=== PATIENT | male | born 1955 | race Caucasian/White ===

== ENCOUNTER 2020-08-16 19:30 | Emergency (ER) | payer MEDICARE ==
[~2020-08-16] VITALS: Ht 180.3 cm; Wt 91.7 kg
[2020-08-16] MEDS ORDERED: LIDOCAINE W/EPINEPHRINE 1% 20ML VIAL SC ONE (22:30)
[2020-08-16] MEDS ORDERED: CEPH500C PO (23:13)
[2020-08-16 23:15] VITALS: BP 134/74
== END 2020-08-16 23:47 | disposition home or self-care (01) ==
LOC: M ED 19:30
DX: S80.852A Superficial foreign body, left lower leg, initial encounter (principal); W45.8XXA Other foreign body or object entering through skin, initial encounter; Y92.9 Unspecified place or not applicable; Y93.9 Activity, unspecified; Y99.9 Unspecified external cause status; F17.200 Nicotine dependence, unspecified, uncomplicated

== ENCOUNTER → 2021-08-22 | Outpatient (CLI) | payer MEDICARE ==
[~2021-08-22] MED LIST: CEPH500C PO
== END ==
LOC: M RAD 15:23
PROVIDERS: ATTEND Urology Pediatric Urology
DX: N50.811 Right testicular pain (principal)

== ENCOUNTER 2021-12-15 08:51 | Emergency (ER) | payer MEDICARE ==
[~2021-12-15] VITALS: Ht 180.3 cm; Wt 95.6 kg
[2021-12-15] MEDS ORDERED: ATOR1TAB21 (09:05)
[2021-12-15] MEDS ORDERED: LISI10TA22 (09:05)
[2021-12-15] MEDS ORDERED: SILD100T (09:05)
[2021-12-15] MEDS ORDERED: TRAZ1TAB14 (09:05)
[2021-12-15] MEDS ORDERED: PANT40TA29 (09:05)
[2021-12-15] MEDS ORDERED: TAMS1CAP17 (09:05)
[2021-12-15 09:28] LABS: BASO # 0.1 10^3/uL (0.0-0.2); EOS # 1.1 10^3/uL (0.0-0.5); HEMATOCRIT 48.1 % (42.0-52.0); LYMPH # 1.9 10^3/uL (1.5-5.0); LYMPH % 26.8 % (24.0-44.0); MEAN CORPUSCULAR HEMOGLOBIN 29.6 pg (27.0-33.0); MEAN CORPUSCULAR HGB CONC 33.3 g/dl (32.0-36.5); MEAN CORPUSCULAR VOLUME 88.9 fl (80.0-96.0); MONO # 0.5 10^3/uL (0.0-0.8); MONO % 6.7 % (2.0-8.0); NEUTROPHILS # 3.5 10^3/uL (1.5-8.5); NEUTROPHILS % 50.1 % (36.0-66.0); PLATELET COUNT, AUTOMATED 234 10^3/uL (150-450); RED BLOOD COUNT 5.41 10^6/uL (4.30-6.10)
[2021-12-15 10:05] LABS: BLOOD UREA NITROGEN 15 MG/DL (7-18); CALCIUM LEVEL 8.9 MG/DL (8.8-10.2); CARBON DIOXIDE LEVEL 25 MEQ/L (21-32); CHLORIDE LEVEL 107 MEQ/L (98-107); CREATININE FOR GFR 0.89 MG/DL (0.70-1.30); GLOMERULAR FILTRATION RATE > 60.0 (>49); GLUCOSE, FASTING 109 MG/DL (70-100); POTASSIUM SERUM 4.6 MEQ/L (3.5-5.1); SODIUM LEVEL 136 MEQ/L (136-145)
[2021-12-15] MEDS ORDERED: ACETAMINOPHEN 500 MG TAB PO ONE (10:05)
[2021-12-15] MEDS ORDERED: LIDOCAINE 5% (LIDODERM) PATCH TD ONE (11:45)
[2021-12-15] MEDS ORDERED: CYCL5TAB PO (13:04)
[2021-12-15] MEDS ORDERED: LIDO5DIS41 TOP (13:04)
[2021-12-15 13:12] VITALS: BP 125/92
== END 2021-12-15 13:21 | disposition home or self-care (01) ==
LOC: M ED 08:51
DX: S39.012A Strain of muscle, fascia and tendon of lower back, initial encounter (principal); R31.9 Hematuria, unspecified; M76.12 Psoas tendinitis, left hip; I25.84 Coronary atherosclerosis due to calcified coronary lesion; I10 Essential (primary) hypertension; E78.5 Hyperlipidemia, unspecified; K21.9 Gastro-esophageal reflux disease without esophagitis; F17.200 Nicotine dependence, unspecified, uncomplicated; F12.10 Cannabis abuse, uncomplicated; F10.10 Alcohol abuse, uncomplicated

== ENCOUNTER → 2021-12-18 | Outpatient (REF) | payer MEDICARE ==
[~2021-12-18] MED LIST changes: +ATOR1TAB21; +CYCL5TAB PO; +LIDO5DIS41 TOP; +LISI10TA22; +PANT40TA29; +SILD100T; +TAMS1CAP17; +TRAZ1TAB14
[2021-12-18 18:07] LABS: APPEARANCE, URINE MANUAL CLEAR (CLEAR); COLOR, URINE MANUAL YELLOW (YELLOW)
[2021-12-18 18:08] LABS: SPECIFIC GRAVITY,URINE MANUAL 1.015 (1.002-1.035)
[2021-12-18 18:09] LABS: BILIRUBIN, URINE MANUAL NEGATIVE (NEGATIVE); BLOOD URINE MANUAL POSITIVE (NEGATIVE); GLUCOSE, URINE (UA) MANUAL NEGATIVE (NEGATIVE); KETONE, URINE MANUAL NEGATIVE (NEGATIVE); LEUKOCYTE ESTERASE, URINE MAN NEGATIVE (NEGATIVE); NITRITE, URINE MANUAL NEGATIVE (NEGATIVE); PROTEIN, URINE MANUAL NEGATIVE (NEGATIVE); UROBILINOGEN, URINE MANUAL NORMAL (NORMAL)
[2021-12-18 18:37] LABS: BACTERIA, URINE NONE SEEN; HYALINE CAST, URINE NONE SEEN /lpf (0-1); SQUAMOUS EPITHELIAL CELL URINE SMALL AMOUNT /hpf (SMALL AMT); WBC, URINE 0-1 /hpf (0-3)
[2021-12-18 18:38] LABS: MUCUS, URINE SMALL AMOUNT (NEGATIVE)
== END ==
LOC: M SMT 16:54
PROVIDERS: ATTEND Nurse Practitioner Women's Health
DX: R31.29 Other microscopic hematuria (principal); Z12.5 Encounter for screening for malignant neoplasm of prostate

== ENCOUNTER → 2021-12-30 | Outpatient (REF) | payer MEDICARE ==
[2021-12-30 15:17] LABS: APPEARANCE, URINE MANUAL CLEAR (CLEAR); COLOR, URINE MANUAL LT YELLOW (YELLOW)
[2021-12-30 15:18] LABS: BILIRUBIN, URINE MANUAL NEGATIVE (NEGATIVE); BLOOD URINE MANUAL TRACE (NEGATIVE); GLUCOSE, URINE (UA) MANUAL NEGATIVE (NEGATIVE); KETONE, URINE MANUAL NEGATIVE (NEGATIVE); LEUKOCYTE ESTERASE, URINE MAN NEGATIVE (NEGATIVE); NITRITE, URINE MANUAL NEGATIVE (NEGATIVE); SPECIFIC GRAVITY,URINE MANUAL 1.005 (1.002-1.035); UROBILINOGEN, URINE MANUAL NORMAL (NORMAL)
[2021-12-30 15:41] LABS: PROTEIN, URINE MANUAL NEGATIVE (NEGATIVE); RBC, URINE 0-1 /hpf (0-3); WBC, URINE 0-1 /hpf (0-3)
[2021-12-30 15:42] LABS: BACTERIA, URINE SMALL AMOUNT; HYALINE CAST, URINE NONE SEEN /lpf (0-1); SQUAMOUS EPITHELIAL CELL URINE SMALL AMOUNT /hpf (SMALL AMT)
== END ==
LOC: M SMT 13:01
PROVIDERS: ATTEND Urology
DX: R31.29 Other microscopic hematuria (principal)

== ENCOUNTER → 2023-03-26 | Outpatient (REF) | payer MEDICARE, BC ==
[2023-03-26 17:49] LABS: ALBUMIN 3.7 G/DL (3.2-5.2); ALKALINE PHOSPHATASE 79 U/L (46-116); ALT/SGPT 20 U/L (7.0-40); AST/SGOT 12 U/L (<34); BILIRUBIN,TOTAL 0.6 MG/DL (0.3-1.2); BLOOD UREA NITROGEN 18 MG/DL (9-23); CALCIUM LEVEL 9.3 MG/DL (8.3-10.6); CARBON DIOXIDE LEVEL 29 MMOL/L (20-31); CHLORIDE LEVEL 105 MMOL/L (98-107); CHOLESTEROL LEVEL 109 MG/DL (<200); CHOLESTEROL RISK RATIO 2.58 (<5); CREATININE FOR GFR 0.93 MG/DL (0.70-1.30); GLOMERULAR FILTRATION RATE > 60.0 (>49); GLUCOSE, FASTING 89 MG/DL (74-106); HDL CHOLESTEROL 42.1 MG/DL (>40); LDL CHOLESTEROL 56.7 MG/DL (<100); NON-HDL-C 66.9 MG/DL; POTASSIUM SERUM 4.8 MMOL/L (3.5-5.1); SODIUM LEVEL 138 MMOL/L (136-145); TOTAL PROTEIN 7.5 G/DL (5.7-8.2); TRIGLYCERIDES LEVEL 51 MG/DL (<150)
[2023-03-26 17:52] LABS: THYROID STIMULATING HORMONE 2.042 uIU/ML (0.55-4.78)
== END ==
LOC: M LAB REF 16:32
PROVIDERS: ATTEND Family Medicine Addiction Medicine
DX: N40.1 Benign prostatic hyperplasia with lower urinary tract symptoms (principal); E78.5 Hyperlipidemia, unspecified

== ENCOUNTER → 2023-03-31 | Outpatient (CLI) | payer MEDICARE | LOC: M PLAIMG 08:25 | PROVIDERS: ATTEND Family Medicine Addiction Medicine | DX: I10 Essential (primary) hypertension (principal) ==

== ENCOUNTER → 2023-04-14 | Outpatient (CLI) | payer MEDICARE | LOC: M RAD 15:00 | PROVIDERS: ATTEND Family Medicine Addiction Medicine | DX: Z12.2 Encounter for screening for malignant neoplasm of respiratory organs (principal); F17.210 Nicotine dependence, cigarettes, uncomplicated ==

== ENCOUNTER 2023-05-29 07:09 | Day surgery (SDC) | payer MEDICARE ==
[~2023-05-29] VITALS: Ht 180.3 cm; Wt 94.5 kg
[~2023-05-29 07:09] MED LIST changes: +ALBU8.5H; +ATOR80TA59 PO; -LISI10TA22; +LISI10TA22 PO; -PANT40TA29; +PANT40TA29 PO; -TAMS1CAP17; +TAMS1CAP17 PO; -TRAZ1TAB14; +TRAZ1TAB14 PO
[2023-05-29] MEDS ORDERED: LR 1,000 ML IV SCH (07:40)
[2023-05-29] MEDS ORDERED: ONDANSETRON 4MG 2ML VIAL As Ordered ONE (08:48)
[2023-05-29] MEDS ORDERED: propofoL 200 MG/20 ML VIAL As Ordered ONE (08:48)
[2023-05-29] MEDS ORDERED: LIDOCAINE 2% 100MG/5ML SDV (FOR ANES.) As Ordered ONE (08:48)
[2023-05-29] MEDS ORDERED: ePHEDrine SULFATE 25 MG/5 ML(5MG/ML) SYRINGE As Ordered ONE (08:49)
[2023-05-29] MEDS ORDERED: fentaNYL 100 MCG/2 ML INJECTION As Ordered ONE (08:49)
[2023-05-29] MEDS ORDERED: MIDAZOLAM INJ 2MG/2ML VIAL As Ordered ONE (08:49)
[2023-05-29] MEDS ORDERED: PHENYLephrine 500MCG 5ML (100MCG/ML) SYRINGE As Ordered ONE (08:49)
[2023-05-29] MEDS ORDERED: BACITRACIN OINTMENT 30GM TUBE As Ordered ONE (08:53)
[2023-05-29] MEDS ORDERED: ACETAMINOPHEN 1000MG 100ML IV BAG As Ordered ONE (09:37)
[2023-05-29] MEDS ORDERED: fentaNYL 100 MCG/2 ML INJECTION IV PRN (09:45)
[2023-05-29] MEDS ORDERED: MORPHINE 2 MG/ML 1ML VIAL IV PRN (09:45)
[2023-05-29] MEDS ORDERED: oxyCODONE 5MG TAB PO PRN (09:45)
[2023-05-29] MEDS ORDERED: ONDANSETRON 4MG 2ML VIAL IV PRN (09:45)
[2023-05-29 10:33] VITALS: BP 132/80; TEMP 96.9; O2SAT 98
== END 2023-05-29 11:00 | disposition home or self-care (01) ==
LOC: M SDC 07:09
PROVIDERS: ATTEND Orthopaedic Surgery Hand Surgery
DX: G56.02 Carpal tunnel syndrome, left upper limb (principal); I10 Essential (primary) hypertension; E78.00 Pure hypercholesterolemia, unspecified; N40.0 Benign prostatic hyperplasia without lower urinary tract symptoms; Z79.899 Other long term (current) drug therapy; F17.210 Nicotine dependence, cigarettes, uncomplicated; R05.3 Chronic cough; K21.9 Gastro-esophageal reflux disease without esophagitis
CPT/HCPCS: 29848; J0131; J0665; J1100; J2250; J2371; J2405; J3010

== ENCOUNTER → 2023-06-18 | Outpatient (CLI) | payer MEDICARE | LOC: M SOG 08:07 | PROVIDERS: ATTEND Orthopaedic Surgery | DX: M25.562 Pain in left knee (principal) ==

== ENCOUNTER 2023-07-04 12:11 | Emergency (ER) | payer MEDICARE ==
[~2023-07-04] VITALS: Ht 180.3 cm; Wt 98.6 kg
[2023-07-04 12:11] VITALS: BP 139/85; TEMP 98.4; O2SAT 97
[2023-07-04 13:14] LABS: BASO # 0.1 10^3/uL (0.0-0.2); BASO % 0.7 % (0.0-1.0); EOS # 0.5 10^3/uL (0.0-0.5); EOS % 7.3 % (0.0-3.0); HEMATOCRIT 43.8 % (42.0-52.0); HEMOGLOBIN 14.9 g/dl (13.5-17.5); LYMPH # 1.7 10^3/uL (1.5-5.0); LYMPH % 23.2 % (24.0-44.0); MEAN CORPUSCULAR VOLUME 88.1 fl (80.0-96.0); MONO # 0.5 10^3/uL (0.0-0.8); MONO % 6.4 % (2.0-8.0); NEUTROPHILS # 4.5 10^3/uL (1.5-8.5); PLATELET COUNT, AUTOMATED 234 10^3/uL (150-450); RED BLOOD COUNT 4.97 10^6/uL (4.30-6.10); WHITE BLOOD COUNT 7.2 10^3/uL (4.0-10.0)
[2023-07-04 13:19] LABS: ERYTHROCYTE SEDIMENTATION RATE 15 mm/hr (0-20)
[2023-07-04 13:46] LABS: BLOOD UREA NITROGEN 17 MG/DL (9-23); CARBON DIOXIDE LEVEL 27 MMOL/L (20-31); CHLORIDE LEVEL 105 MMOL/L (98-107); CREATININE FOR GFR 0.93 MG/DL (0.70-1.30); GLOMERULAR FILTRATION RATE > 60.0 (>49); GLUCOSE, FASTING 82 MG/DL (74-106); POTASSIUM SERUM 4.4 MMOL/L (3.5-5.1); SODIUM LEVEL 137 MMOL/L (136-145)
[2023-07-04] MEDS ORDERED: AMOX875T2 PO (14:20)
[2023-07-04] MEDS: AUGMENTIN 875 MG TAB PO ONE (14:23)
[2023-07-04] MEDS: CETIRIZINE (ZyrTEC) 10 MG TAB PO ONE (14:23)
== END 2023-07-04 14:35 | disposition home or self-care (01) ==
LOC: M ED 12:11
DX: S60.562A Insect bite (nonvenomous) of left hand, initial encounter (principal); L03.114 Cellulitis of left upper limb; K21.9 Gastro-esophageal reflux disease without esophagitis; E78.5 Hyperlipidemia, unspecified; F51.01 Primary insomnia; F12.10 Cannabis abuse, uncomplicated; F10.10 Alcohol abuse, uncomplicated; Z87.891 Personal history of nicotine dependence; Z79.52 Long term (current) use of systemic steroids; Z79.2 Long term (current) use of antibiotics; Z79.02 Long term (current) use of antithrombotics/antiplatelets; Z79.811 Long term (current) use of aromatase inhibitors; Z79.899 Other long term (current) drug therapy

== ENCOUNTER → 2023-07-23 | Outpatient (CLI) | payer MEDICARE ==
[~2023-07-23] MED LIST changes: +AMOX875T2 PO
== END ==
LOC: M SLEEP 20:00
PROVIDERS: ATTEND Internal Medicine Critical Care Medicine
DX: G47.33 Obstructive sleep apnea (adult) (pediatric) (principal)

== ENCOUNTER 2023-08-27 19:55 | Emergency (ER) | payer MEDICARE ==
[~2023-08-27] VITALS: Ht 180.3 cm; Wt 94.3 kg
[2023-08-27 19:56] VITALS: BP 135/90; TEMP 98.4; O2SAT 96
[2023-08-27] MEDS: LIDOCAINE 2% MDV 20ML VIAL SC ONE (20:40)
[2023-08-27] MEDS ORDERED: CEFD300CAP PO (21:13)
[2023-08-27] MEDS: CEFDINIR 300 MG CAP (OMNICEF) PO ONE (21:17)
== END 2023-08-27 21:24 | disposition home or self-care (01) ==
LOC: M ED 19:55
DX: S60.450A Superficial foreign body of right index finger, initial encounter (principal); K21.9 Gastro-esophageal reflux disease without esophagitis; I10 Essential (primary) hypertension; N40.0 Benign prostatic hyperplasia without lower urinary tract symptoms; E78.5 Hyperlipidemia, unspecified; Z79.52 Long term (current) use of systemic steroids; Z79.02 Long term (current) use of antithrombotics/antiplatelets; Z79.811 Long term (current) use of aromatase inhibitors; Z79.2 Long term (current) use of antibiotics; Y92.9 Unspecified place or not applicable; Y93.89 Activity, other specified; Y99.9 Unspecified external cause status

== ENCOUNTER → 2023-09-07 | Outpatient (CLI) | payer MEDICARE ==
[~2023-09-07] MED LIST changes: +CEFD300CAP PO
== END ==
LOC: M RAD 07:27
PROVIDERS: ATTEND Orthopaedic Surgery Hand Surgery
DX: M19.032 Primary osteoarthritis, left wrist (principal); M25.532 Pain in left wrist

== ENCOUNTER → 2023-11-15 | Outpatient (CLI) | payer MEDICARE | LOC: M SLEEP 20:00 | PROVIDERS: ATTEND Internal Medicine Critical Care Medicine | DX: G47.30 Sleep apnea, unspecified (principal) ==

== ENCOUNTER → 2023-11-16 | Outpatient (CLI) | payer MEDICARE | LOC: M RAD 12:52 | PROVIDERS: ATTEND Family Medicine Addiction Medicine | DX: L98.9 Disorder of the skin and subcutaneous tissue, unspecified (principal) ==

== ENCOUNTER → 2024-01-06 | Outpatient (REF) | payer MEDICARE ==
[~2024-01-06] MED LIST changes: -CYCL5TAB PO; +CYCL5TAB4 PO
[2024-01-06 14:05] LABS: ALBUMIN 3.7 G/DL (3.2-5.2); ALKALINE PHOSPHATASE 90 U/L (40-129); ALT/SGPT 22 U/L (7.0-40); AST/SGOT 12 U/L (<34); BILIRUBIN,TOTAL 0.6 MG/DL (0.3-1.2); BLOOD UREA NITROGEN 17 MG/DL (9-23); CALCIUM LEVEL 9.4 MG/DL (8.3-10.6); CARBON DIOXIDE LEVEL 26 MMOL/L (20-31); CHLORIDE LEVEL 108 MMOL/L (98-107); CHOLESTEROL LEVEL 122 MG/DL (<200); CHOLESTEROL RISK RATIO 2.99 (<5); CREATININE FOR GFR 0.86 MG/DL (0.70-1.30); GLOMERULAR FILTRATION RATE > 60.0 (>49); GLUCOSE, FASTING 97 MG/DL (74-106); HDL CHOLESTEROL 40.7 MG/DL (>40); LDL CHOLESTEROL 66.9 MG/DL (<100); NON-HDL-C 81.3 MG/DL; POTASSIUM SERUM 4.4 MMOL/L (3.5-5.1); SODIUM LEVEL 139 MMOL/L (136-145); THYROID STIMULATING HORMONE 2.082 uIU/ML (0.55-4.78); TOTAL PROTEIN 7.5 G/DL (5.7-8.2); TRIGLYCERIDES LEVEL 72 MG/DL (<150)
== END ==
LOC: M LAB REF 12:53
PROVIDERS: ATTEND Family Medicine Addiction Medicine
DX: E78.5 Hyperlipidemia, unspecified (principal)

== ENCOUNTER 2024-02-10 10:02 | Day surgery (SDC) | payer MEDICARE ==
[~2024-02-10] VITALS: Ht 180.3 cm; Wt 97.1 kg
[~2024-02-10 10:02] MED LIST changes: +ASPI81TA26 PO; +LORA-1041 PO; +PHENYLEPHRINE 10% OPHTH SOL 5ML OD PRN; +SILD100T PO
[2024-02-10] MEDS ORDERED: MIDAZOLAM INJ 2MG/2ML VIAL As Ordered ONE (11:06)
[2024-02-10] MEDS ORDERED: fentaNYL 100 MCG/2 ML INJECTION As Ordered ONE (11:07)
[2024-02-10] MEDS: LIDOCAINE 3.5 % 1ML OPHTH TOPICAL GEL OU ONE (11:23)
[2024-02-10] MEDS: TROPICAMIDE 1% OPHTH SOLN 15ML OD SCH (11:23)
[2024-02-10] MEDS: PHENYLEPHRINE 2.5% OPHTH SOL 2ML OD SCH (11:23)
[2024-02-10] MEDS: OFLOXACIN 0.3 % (OCUFLOX) OPTH SOL 5ML OD ONE (11:23)
[2024-02-10] MEDS: CYCLOPENTOLATE 1% OPHTH SOLN 2ML BTL OD SCH (11:23)
[2024-02-10] MEDS: BSS IRRIG/VANCO(10MG)/TOBRA(5MG)/EPINEPH(1:1000-0.5CC)500ML BAG-ORONLY As Ordered ONE (12:21)
[2024-02-10] MEDS: LIDOCAINE 1% SDV 5ML VIAL As Ordered ONE (12:21)
[2024-02-10] MEDS: CEFUROXIME 1MG/0.1ML INTRACAMERAL INJ As Ordered ONE (12:21)
[2024-02-10 12:40] VITALS: BP 124/79; TEMP 97.1; O2SAT 95
== END 2024-02-10 13:05 | disposition home or self-care (01) ==
LOC: M SDC 10:02
PROVIDERS: ATTEND Ophthalmology
DX: H25.11 Age-related nuclear cataract, right eye (principal); H57.03 Miosis; I10 Essential (primary) hypertension; E78.00 Pure hypercholesterolemia, unspecified; N40.0 Benign prostatic hyperplasia without lower urinary tract symptoms; K21.9 Gastro-esophageal reflux disease without esophagitis; G47.30 Sleep apnea, unspecified; F17.210 Nicotine dependence, cigarettes, uncomplicated; Z79.82 Long term (current) use of aspirin; Z79.899 Other long term (current) drug therapy
CPT/HCPCS: 66982; 92015; J0697; J2250; J3010; V2632

== ENCOUNTER → 2024-02-26 | Outpatient (CLI) | payer MEDICARE ==
[~2024-02-26] MED LIST changes: -PHENYLEPHRINE 10% OPHTH SOL 5ML OD PRN
[2024-02-26 11:45] LABS: BASO # 0.1 10^3/uL (0.0-0.2); BASO % 1.1 % (0.0-1.0); EOS % 12.8 % (0.0-3.0); HEMATOCRIT 47.7 % (42.0-52.0); HEMOGLOBIN 15.7 g/dl (13.5-17.5); LYMPH # 2.1 10^3/uL (1.5-5.0); LYMPH % 27.9 % (24.0-44.0); MEAN CORPUSCULAR HEMOGLOBIN 29.3 pg (27.0-33.0); MEAN CORPUSCULAR HGB CONC 32.9 g/dl (32.0-36.5); MEAN CORPUSCULAR VOLUME 89.2 fl (80.0-96.0); MONO # 0.5 10^3/uL (0.0-0.8); MONO % 6.2 % (2.0-8.0); NEUTROPHILS # 3.8 10^3/uL (1.5-8.5); NEUTROPHILS % 51.7 % (36.0-66.0); PLATELET COUNT, AUTOMATED 231 10^3/uL (150-450); RED BLOOD COUNT 5.35 10^6/uL (4.30-6.10); WHITE BLOOD COUNT 7.4 10^3/uL (4.0-10.0)
[2024-02-26 12:11] LABS: ALBUMIN 3.8 G/DL (3.2-5.2); ALKALINE PHOSPHATASE 84 U/L (40-129); ALT/SGPT 22 U/L (7.0-40); AST/SGOT 13 U/L (<34); BILIRUBIN,TOTAL 0.7 MG/DL (0.3-1.2); BLOOD UREA NITROGEN 18 MG/DL (9-23); CALCIUM LEVEL 9.8 MG/DL (8.3-10.6); CARBON DIOXIDE LEVEL 28 MMOL/L (20-31); CHLORIDE LEVEL 104 MMOL/L (98-107); GLOMERULAR FILTRATION RATE > 60.0 (>49); GLUCOSE, FASTING 94 MG/DL (74-106); POTASSIUM SERUM 4.4 MMOL/L (3.5-5.1); SODIUM LEVEL 138 MMOL/L (136-145); TOTAL PROTEIN 7.6 G/DL (5.7-8.2)
== END ==
LOC: M LAB 10:43
PROVIDERS: ATTEND Podiatrist
DX: Z01.818 Encounter for other preprocedural examination (principal); M20.11 Hallux valgus (acquired), right foot; M79.671 Pain in right foot

== ENCOUNTER 2024-03-11 12:16 | Day surgery (SDC) | payer MEDICARE ==
[~2024-03-11] VITALS: Ht 180.3 cm; Wt 98.0 kg
[~2024-03-11 12:16] MED LIST changes: +VARE1TAB7 PO
[2024-03-11] MEDS: LR 1,000 ML IV SCH (12:30)
[2024-03-11] MEDS ORDERED: MIDAZOLAM INJ 2MG/2ML VIAL As Ordered ONE (12:41)
[2024-03-11] MEDS ORDERED: fentaNYL 100 MCG/2 ML INJECTION As Ordered ONE (12:41)
[2024-03-11] MEDS ORDERED: ACETAMINOPHEN 1000MG/100ML IV BAG As Ordered ONE (12:42)
[2024-03-11] MEDS ORDERED: propofoL 200 MG/20 ML VIAL As Ordered ONE (12:42)
[2024-03-11] MEDS ORDERED: KETOROLAC 60MG 2ML VIAL As Ordered ONE (12:42)
[2024-03-11] MEDS ORDERED: LIDOCAINE 2% 100MG/5ML SDV (FOR ANES.) As Ordered ONE (12:42)
[2024-03-11] MEDS: NS (Normal Saline) 0.9% 250 ML IV SCH (12:45)
[2024-03-11] MEDS ORDERED: ONDANSETRON 4MG 2ML VIAL As Ordered ONE (12:50)
[2024-03-11] MEDS: ceFAZolin SOD 2 GM in IV 1 EA IV ONE (14:20)
[2024-03-11] MEDS: GENTAMICIN SULF 80MG/2ML VIAL As Ordered ONE (14:20)
[2024-03-11] MEDS: LIDOCAINE 2% MDV 20ML VIAL As Ordered ONE (14:20)
[2024-03-11] MEDS ORDERED: ePHEDrine SULFATE 25 MG/5 ML(5MG/ML) SYRINGE As Ordered ONE (14:31)
[2024-03-11] MEDS ORDERED: PHENYLephrine 500MCG 5ML (100MCG/ML) SYRINGE As Ordered ONE (14:44)
[2024-03-11 15:55] VITALS: BP 130/80; TEMP 98; O2SAT 66
== END 2024-03-11 15:57 | disposition home or self-care (01) ==
LOC: M SDC 12:16
PROVIDERS: ATTEND Podiatrist
DX: M20.11 Hallux valgus (acquired), right foot (principal); I10 Essential (primary) hypertension; E78.00 Pure hypercholesterolemia, unspecified; K21.9 Gastro-esophageal reflux disease without esophagitis; G47.30 Sleep apnea, unspecified; N40.0 Benign prostatic hyperplasia without lower urinary tract symptoms; Z79.82 Long term (current) use of aspirin; Z79.899 Other long term (current) drug therapy; Z87.891 Personal history of nicotine dependence
CPT/HCPCS: 28296; 73630; 76000; 88300; C1713; J0131; J0665; J0690; J1100; J1580; J1885; J2250; J2371; J2405; J3010

== ENCOUNTER → 2024-04-27 | Outpatient (CLI) | payer MEDICARE | LOC: M RAD 12:33 | PROVIDERS: ATTEND Internal Medicine Critical Care Medicine | DX: Z87.891 Personal history of nicotine dependence (principal) ==

== ENCOUNTER → 2024-05-05 | Outpatient (CLI) | payer MEDICARE | LOC: M SLEEP 20:00 | PROVIDERS: ATTEND Internal Medicine Critical Care Medicine | DX: G47.33 Obstructive sleep apnea (adult) (pediatric) (principal) ==

== ENCOUNTER → 2024-06-23 | Outpatient (CLI) | payer MEDICARE | LOC: M PLAIMG 13:13 | PROVIDERS: ATTEND Internal Medicine Cardiovascular Disease | DX: I77.810 Thoracic aortic ectasia (principal); I35.1 Nonrheumatic aortic (valve) insufficiency; I27.23 Pulmonary hypertension due to lung diseases and hypoxia; I08.9 Rheumatic multiple valve disease, unspecified ==

== ENCOUNTER 2024-06-28 17:46 | Emergency (ER) | payer MEDICARE ==
[~2024-06-28] VITALS: Ht 180.3 cm; Wt 104.4 kg
[2024-06-28 23:00] VITALS: BP 153/83; TEMP 97.9
[2024-06-29 01:06] VITALS: O2SAT 99
[2024-06-29] MEDS: PERCOCET 5MG/325MG TAB PO ONE (01:06)
[2024-06-29] MEDS: OXYCODONE/APAP 5MG/325MG(HOME DOSE PACK) PO ONE (01:08)
== END 2024-06-29 01:12 | disposition home or self-care (01) ==
LOC: M ED 17:46
DX: S82.64XA Nondisplaced fracture of lateral malleolus of right fibula, initial encounter for closed fracture (principal); K21.9 Gastro-esophageal reflux disease without esophagitis; I10 Essential (primary) hypertension; F12.10 Cannabis abuse, uncomplicated; Y92.009 Unspecified place in unspecified non-institutional (private) residence as the place of occurrence of the external cause; Y93.K9 Activity, other involving animal care; Y99.9 Unspecified external cause status; Z79.82 Long term (current) use of aspirin; Z79.02 Long term (current) use of antithrombotics/antiplatelets; Z79.899 Other long term (current) drug therapy

== ENCOUNTER → 2024-07-06 | Outpatient (CLI) | payer MEDICARE ==
[~2024-07-06] MED LIST changes: +LIDO1ADH93 TOP; -LIDO5DIS41 TOP
== END ==
LOC: M SOG 06:50
PROVIDERS: ATTEND Orthopaedic Surgery
DX: S82.64XA Nondisplaced fracture of lateral malleolus of right fibula, initial encounter for closed fracture (principal); X58.XXXA Exposure to other specified factors, initial encounter; Y92.9 Unspecified place or not applicable

== ENCOUNTER → 2024-11-08 | Outpatient (CLI) | payer MEDICARE | LOC: M CARPUL 12:29 | PROVIDERS: ATTEND Internal Medicine Cardiovascular Disease | DX: I25.10 Atherosclerotic heart disease of native coronary artery without angina pectoris (principal); R06.02 Shortness of breath ==

== ENCOUNTER → 2024-12-01 | Outpatient (CLI) | payer MEDICARE ==
[2024-12-01 14:04] LABS: CALCIUM LEVEL 8.9 MG/DL (8.3-10.6); CARBON DIOXIDE LEVEL 28 MMOL/L (20-31); CHLORIDE LEVEL 105 MMOL/L (98-107); CREATININE FOR GFR 0.92 MG/DL (0.70-1.30); GLOMERULAR FILTRATION RATE > 90.0 (>49); POTASSIUM SERUM 4.3 MMOL/L (3.5-5.1); SODIUM LEVEL 143 MMOL/L (136-145)
== END ==
LOC: M PLALAB 09:52
PROVIDERS: ATTEND Physician Assistant
DX: I10 Essential (primary) hypertension (principal)

== ENCOUNTER → 2024-12-06 | Outpatient (CLI) | payer MEDICARE ==
[2024-12-06 12:58] LABS: BASO # 0.1 10^3/uL (0.0-0.2); BASO % 1.0 % (0.0-1.0); EOS # 0.5 10^3/uL (0.0-0.5); EOS % 7.6 % (0.0-3.0); LYMPH # 1.6 10^3/uL (1.5-5.0); LYMPH % 27.3 % (24.0-44.0); MONO # 0.4 10^3/uL (0.0-0.8); MONO % 7.4 % (2.0-8.0); NEUTROPHILS # 3.3 10^3/uL (1.5-8.5); NEUTROPHILS % 56.4 % (36.0-66.0); PLATELET COUNT, AUTOMATED 257 10^3/uL (150-450)
[2024-12-06 13:04] LABS: INR 0.99
[2024-12-06 13:26] LABS: ALT/SGPT 19 U/L (7.0-40); AST/SGOT 17 U/L (<34); C REACTIVE PROTEIN QUANTITATIV < 0.50 MG/DL (<1.0); CALCIUM LEVEL 9.1 MG/DL (8.3-10.6); CARBON DIOXIDE LEVEL 29 MMOL/L (20-31); CHLORIDE LEVEL 104 MMOL/L (98-107); CREATININE FOR GFR 0.94 MG/DL (0.70-1.30); GLOMERULAR FILTRATION RATE 87.8 (>49); POTASSIUM SERUM 4.2 MMOL/L (3.5-5.1); SODIUM LEVEL 143 MMOL/L (136-145)
[2024-12-06 14:28] LABS: ESTIMATED AVERAGE GLUCOSE 120.0 MG/DL (60-110)
== END ==
LOC: M PLALAB 11:25
PROVIDERS: ATTEND Orthopaedic Surgery
DX: M17.32 Unilateral post-traumatic osteoarthritis, left knee (principal); M25.562 Pain in left knee; Z79.899 Other long term (current) drug therapy

== ENCOUNTER → 2024-12-19 | Outpatient (CLI) | payer MEDICARE ==
[~2024-12-19] MED LIST changes: +ATOR1TAB19 PO; +BUDE10.7 INH; +LOSA50TA28 PO
== END ==
LOC: M RAD 15:04
PROVIDERS: ATTEND Orthopaedic Surgery
DX: M17.32 Unilateral post-traumatic osteoarthritis, left knee (principal); Z98.890 Other specified postprocedural states; M16.0 Bilateral primary osteoarthritis of hip

== ENCOUNTER → 2024-12-21 | Outpatient (REF) | payer MEDICARE ==
[2024-12-23 10:27] LABS: PSA % FREE 22.0 % (calc) (>25); PSA FREE 0.2 ng/mL; PSA TOTAL 0.9 ng/mL (< OR = 4.0)
== END ==
LOC: M LAB REF 12:35
PROVIDERS: ATTEND Family Medicine Addiction Medicine
DX: Z12.5 Encounter for screening for malignant neoplasm of prostate (principal)

== ENCOUNTER 2025-01-02 08:13 | Observation (INO) | payer MEDICARE ==
[~2025-01-02] VITALS: Ht 180.3 cm; Wt 104.6 kg
[~2025-01-02 08:13] MED LIST changes: +LIDOCAINE 2% 100 MG/5 ML SDV (FOR ANES.) As Ordered ONE; +ONDANSETRON 4MG/2ML VIAL As Ordered ONE; +ROCURONIUM BROMIDE 50MG/5ML VIAL As Ordered ONE; +dexAMETHasone 4 MG/ML 1 ML VIAL As Ordered ONE
[2025-01-02] MEDS: LR 1,000 ML IV SCH ×3 (09:35→16:36)
[2025-01-02] MEDS ORDERED: DOCU100C16 PO (09:46)
[2025-01-02] MEDS ORDERED: LOSA100T46 PO (09:46)
[2025-01-02] MEDS ORDERED: SENN-193 PO (09:46)
[2025-01-02] MEDS ORDERED: MILKSUS3 PO (09:46)
[2025-01-02] MEDS ORDERED: HOME MED LIST COMPLETE! XX SCH (09:50)
[2025-01-02] MEDS ORDERED: MIDAZOLAM INJ 2 MG/2 ML VIAL As Ordered ONE (10:08)
[2025-01-02] MEDS: TRANEXAMIC ACID 100 MG/ML 10ML VIAL As Ordered ONE (12:00)
[2025-01-02] MEDS ORDERED: HYDROmorphone HCL 2 MG/ML 1 ML VIAL As Ordered ONE (12:37)
[2025-01-02] MEDS: REK 50ML SYRINGE IA ONE (12:52)
[2025-01-02] MEDS: VANCOMYCIN 1000MG/20ML VIAL As Ordered ONE (12:53)
[2025-01-02] MEDS ORDERED: HYDROMORPHONE HCL 0.5 MG/0.5 ML SYRINGE IV PRN (14:30)
[2025-01-02] MEDS ORDERED: ONDANSETRON 4MG/2ML VIAL IV PRN ×2 (14:30→15:00)
[2025-01-02] MEDS ORDERED: SENNA 8.6 MG TAB PO PRN (15:00)
[2025-01-02 16:15] VITALS: BP 132/80; TEMP 98.1; O2SAT 95
[2025-01-02] MEDS: ceFAZolin SODIUM 2 GM in DEXTROSE 5% (D5W) ADV/MINI-BAG 50 ML IV SCH (16:35)
[2025-01-02] MEDS: FAMOTIDINE 20 MG TAB PO SCH (16:37)
[2025-01-02 16:45] VITALS: BP 134/77; TEMP 98.7; O2SAT 95
[2025-01-02 17:45] VITALS: BP 117/83; TEMP 98.9; O2SAT 95
[2025-01-02] MEDS: ACETAMINOPHEN 325 MG TAB PO SCH (18:25)
[2025-01-02 18:26] VITALS: BP 134/84; TEMP 98.6; O2SAT 98
[2025-01-02 19:45] VITALS: BP 130/83; TEMP 98.4; O2SAT 96
[2025-01-02] MEDS ORDERED: SYMBICORT 80/4.5MCG INHALER 6GM INH SCH (20:00)
[2025-01-02] MEDS: SYMBICORT 160/4.5MCG INHALER 6GM INH SCH (20:05)
[2025-01-02] MEDS: DOCUSATE SODIUM 100 MG CAPSULE PO SCH (20:14)
[2025-01-02] MEDS: ASPIRIN 81 MG ENTERIC TABLET PO SCH (20:14)
[2025-01-02] MEDS: traZODone 50 MG TAB PO SCH (20:15)
[2025-01-02 20:45] VITALS: BP 137/80; TEMP 98.6; O2SAT 94
[2025-01-03] VITALS: BP 121/80; TEMP 98.1; O2SAT 96
[2025-01-03 04:00] VITALS: BP 121/79; TEMP 98.4; O2SAT 98
[2025-01-03 06:47] LABS: PLATELET COUNT, AUTOMATED 265 10^3/uL (150-450)
[2025-01-03 07:15] LABS: ALT/SGPT 19 U/L (7.0-40); AST/SGOT 19 U/L (<34); CALCIUM LEVEL 8.7 MG/DL (8.3-10.6); CARBON DIOXIDE LEVEL 25 MMOL/L (20-31); CHLORIDE LEVEL 99 MMOL/L (98-107); CREATININE FOR GFR 0.92 MG/DL (0.70-1.30); GLOMERULAR FILTRATION RATE > 90.0 (>49); POTASSIUM SERUM 4.7 MMOL/L (3.5-5.1); SODIUM LEVEL 135 MMOL/L (136-145)
[2025-01-03] MEDS: TIOTROPIUM BROM 2.5MCG/ACTUATION 4GM INH INH SCH (07:55)
[2025-01-03 08:10] VITALS: BP 135/87; TEMP 98.3; O2SAT 93
[2025-01-03] MEDS: ASCORBIC ACID 500 MG TAB PO SCH (08:12)
[2025-01-03 08:13] VITALS: BP 135/87
[2025-01-03] MEDS: CEFDINIR 300 MG CAP PO SCH (08:13)
[2025-01-03] MEDS: LOSARTAN 50 MG TABLET PO SCH (08:13)
[2025-01-03] MEDS: ATORVASTATIN 20 MG TAB PO SCH (08:14)
[2025-01-03] MEDS: FERROUS SULFATE 325 MG TAB PO SCH (08:14)
[2025-01-03] MEDS: PANTOPRAZOLE 40MG TAB PO SCH (08:14)
[2025-01-03] MEDS ORDERED: CEFD300CAP PO (09:21)
[2025-01-03] MEDS ORDERED: CELE100C PO (09:21)
[2025-01-03] MEDS ORDERED: ACET32TAB PO (09:21)
[2025-01-03] MEDS ORDERED: TRAN650T PO (09:21)
[2025-01-03] MEDS ORDERED: ASPI81TAEC PO (09:21)
[2025-01-03] MEDS ORDERED: ENDO5TAB PO (09:21)
[2025-01-03 10:00] VITALS: BP 130/78; TEMP 99.1; O2SAT 95
[2025-01-03 10:10] VITALS: O2SAT 91
[2025-01-03] MEDS: PNEUMOC 21-VAL CONJ-DIP CRM/PF 0.5 ML SYRINGE IM.IMMUN ONE (11:25)
[2025-01-03] MEDS: FLUZONE HIGH DOSE (65+) 0.5 ML SYRINGE (25-26) IM.IMMUN ONE (11:25)
== END 2025-01-03 12:05 | disposition home or self-care (01) ==
LOC: M SDC 08:13 → M RR INP 08:14 → M MS5PR 16:05
PROVIDERS: ADMIT Orthopaedic Surgery; ATTEND Orthopaedic Surgery
DX: M17.32 Unilateral post-traumatic osteoarthritis, left knee (principal); I10 Essential (primary) hypertension; E78.5 Hyperlipidemia, unspecified; K21.9 Gastro-esophageal reflux disease without esophagitis; N40.0 Benign prostatic hyperplasia without lower urinary tract symptoms; G47.33 Obstructive sleep apnea (adult) (pediatric); I08.0 Rheumatic disorders of both mitral and aortic valves; Z79.82 Long term (current) use of aspirin; Z79.51 Long term (current) use of inhaled steroids; Z79.899 Other long term (current) drug therapy; F12.10 Cannabis abuse, uncomplicated
CPT/HCPCS: 27447; 36415; 73560; 80053; 85027; 88300; 94640; 94664; 96365; 96366; 96375; 96376; 97110; 97116; 97161; 97165; 97530; C1776; G0378; J0165; J0688; J1100; J1171; J1885; J2250; J2405; J2795; J3010; J3373; S2900

== ENCOUNTER → 2025-01-13 | Outpatient (CLI) | payer MEDICARE ==
[~2025-01-13] MED LIST changes: +ACET32TAB PO; +ASPI81TAEC PO; +CELE100C PO; +DOCU100C16 PO; +ENDO5TAB PO; -LIDOCAINE 2% 100 MG/5 ML SDV (FOR ANES.) As Ordered ONE; +LOSA100T46 PO; +MILKSUS3 PO; -ONDANSETRON 4MG/2ML VIAL As Ordered ONE; -ROCURONIUM BROMIDE 50MG/5ML VIAL As Ordered ONE; +SENN-193 PO; +TRAN650T PO; -dexAMETHasone 4 MG/ML 1 ML VIAL As Ordered ONE
== END ==
LOC: M SOG 07:46
PROVIDERS: ATTEND Orthopaedic Surgery
DX: Z47.1 Aftercare following joint replacement surgery (principal)

== ENCOUNTER → 2025-02-09 | Outpatient (REF) | payer MEDICARE ==
[2025-02-09 18:37] LABS: BASO # 0.1 10^3/uL (0.0-0.2); BASO % 0.7 % (0.0-1.0); EOS # 0.4 10^3/uL (0.0-0.5); EOS % 4.9 % (0.0-3.0); LYMPH # 2.3 10^3/uL (1.5-5.0); LYMPH % 27.0 % (24.0-44.0); MONO # 0.6 10^3/uL (0.0-0.8); MONO % 7.7 % (2.0-8.0); NEUTROPHILS # 5.0 10^3/uL (1.5-8.5); NEUTROPHILS % 59.3 % (36.0-66.0); PLATELET COUNT, AUTOMATED 297 10^3/uL (150-450)
[2025-02-09 19:07] LABS: CALCIUM LEVEL 8.8 MG/DL (8.3-10.6); CARBON DIOXIDE LEVEL 27.0 MMOL/L (20-31); CHLORIDE LEVEL 105.0 MMOL/L (98-107); CREATININE FOR GFR 0.94 MG/DL (0.70-1.30); GLOMERULAR FILTRATION RATE 87.8 (>49); POTASSIUM SERUM 4.6 MMOL/L (3.5-5.1); SODIUM LEVEL 140.0 MMOL/L (136-145)
== END ==
LOC: M LAB REF 16:17
PROVIDERS: ATTEND Family Medicine Addiction Medicine
DX: Z01.818 Encounter for other preprocedural examination (principal)